=== PATIENT | female | born 1990 | race African-American/Black ===

== ENCOUNTER 2018-01-08 07:24 | Emergency (ER) | payer OTHER, MEDICAID ==
[2018-01-08] MEDS: IBUPROFEN 800 MG TAB PO (07:56)
[2018-01-08 08:34] LABS: ADD UMIC YES; UR ASCORBIC ACID NEGATIVE (NEGATIVE); UR BACTERIA FEW /HPF (NONE SEEN); UR BILIRUBIN (Dip) NEGATIVE (NEGATIVE); UR BLOOD (Dip) NEGATIVE (NEGATIVE); UR CLARITY SLIGHTLY CLOUDY (CLEAR); UR COLOR YELLOW (YELLOW); UR GLUCOSE (Dip) NEGATIVE (NEGATIVE); UR KETONES (Dip) NEGATIVE (NEGATIVE); UR LEUKOCYTE ESTERASE (Dip) 1+ Leu/ul (NEGATIVE); UR MUCUS FEW /HPF (NONE SEEN); UR NITRITE (Dip) NEGATIVE (NEGATIVE); UR RBC 1 /HPF (0-5); UR SPECIFIC GRAVITY (Dip) 1.021 (1.003-1.030); UR SQUAMOUS EPITHELIAL CELL FEW /HPF (FEW); UR TOTAL PROTEIN (Dip) NEGATIVE (NEGATIVE); UR UROBILINOGEN (Dip) NEGATIVE (NEGATIVE); UR WBC 6 /HPF (0-5)
== END 2018-01-08 08:56 | disposition home or self-care (01) ==
LOC: FTE 07:24
DX: M54.5 Low back pain (principal); R09.81 Nasal congestion; N39.0 Urinary tract infection, site not specified
CPT/HCPCS: 81001; 99283

== ENCOUNTER 2018-04-10 03:29 | Emergency (ER) | payer OTHER ==
[2018-04-10 04:48] LABS: URINE BLOOD (Dip) POC Negative (NEGATIVE); URINE GLUCOSE (Dip) POC Negative (NEGATIVE); URINE KETONES (Dip) POC Negative (NEGATIVE); URINE LEUKOCYTE EST (Dip) POC 1+ (NEGATIVE); URINE NITRITE (Dip) POC Negative (NEGATIVE); URINE TOTAL PROTEIN POC Negative (NEGATIVE)
[2018-04-10] MEDS: AMOXICILLIN 500 MG CAP PO (05:28)
[2018-04-10] MEDS: ACETAMINOPHEN 325 MG TAB PO (05:28)
[2018-04-10] MEDS: IBUPROFEN 600 MG TAB PO (05:28)
== END 2018-04-10 05:31 | disposition home or self-care (01) ==
LOC: FTE 03:29
DX: J03.90 Acute tonsillitis, unspecified (principal)
CPT/HCPCS: 81003; 81025; 99283

== ENCOUNTER 2018-05-09 15:31 | Emergency (ER) | payer OTHER | END 2018-05-09 19:32 | disposition left against medical advice (07) | LOC: FTE 15:31 | DX: N91.2 Amenorrhea, unspecified (principal) | CPT/HCPCS: 81025; 84702; 84703; 99283 ==

== ENCOUNTER 2018-06-25 20:25 | Emergency (ER) | payer OTHER ==
[2018-06-25] MEDS: IBUPROFEN 600 MG TAB PO (21:25)
[2018-06-25] MEDS: HYDROCODONE/APAP (5/325) TAB PO (21:26)
== END 2018-06-25 22:15 | disposition home or self-care (01) ==
LOC: FTE 20:25
DX: S50.01XA Contusion of right elbow, initial encounter (principal); W01.0XXA Fall on same level from slipping, tripping and stumbling without subsequent striking against object, initial encounter; Y92.9 Unspecified place or not applicable
CPT/HCPCS: 73080; 73080-RT; 99283-25

== ENCOUNTER 2018-11-09 14:44 | Emergency (ER) | payer OTHER | END 2018-11-09 17:33 | disposition home or self-care (01) | LOC: FTE 14:44 | DX: O9A.211 Injury, poisoning and certain other consequences of external causes complicating pregnancy, first trimester (principal); S00.33XA Contusion of nose, initial encounter; S20.219A Contusion of unspecified front wall of thorax, initial encounter; Y04.8XXA Assault by other bodily force, initial encounter; Z3A.01 Less than 8 weeks gestation of pregnancy | CPT/HCPCS: 99282; Z7502 ==